=== PATIENT | male | born 1970 | race Caucasian/White ===

== ENCOUNTER → 2024-01-28 17:27 | Outpatient (CLI) | payer OTHER, SELFPAY ==
--- NOTE | 2024-01-28 17:30 | DI.MRI.S_ITS ---
PROCEDURE: MR SHOULDER LT WO CON INDICATIONS: IMPINGEMENT SYNDROME OF LEFT SHOULDER TECHNIQUE: Noncontrast oblique coronal T2 fast spin echo with fat saturation, oblique sagittal T1 spin echo and T2 fast spin echo with fat saturation, axial T1 spin echo and T2 fast spin echo with fat saturation through the shoulder. COMPARISON: [facility], MR, SHOULDER WITHOUT CONTRAST, 09/06/2015, 7:26. FINDINGS: Image quality: Excellent. Rotator cuff: Low-grade bursal surface partial-thickness tear involving distal supraspinatus at its insertion on the humeral head is seen extending to musculotendinous junction. Distal infraspinatus and subscapularis tendinosis is seen. No full-thickness rotator cuff tendon rupture. Sagittal images demonstrate no significant rotator cuff muscle atrophy. Bones and bursae: No bone marrow contusions or fractures. Mild to moderate acromioclavicular joint osteoarthritic changes are seen with joint space narrowing and downward osteophyte formation depressing the musculotendinous junction of supraspinatus. Type 1 acromion, without an os acromiale. Small amount of subacromial subdeltoid bursal fluid is seen, no loose bodies. Capsule and soft tissues: There is extensive signal abnormality and fraying of anterior inferior labrum suggestive of anterior-inferior left glenoid labral tear. The long head of the biceps tendon demonstrates normal location and morphology. The rotator interval appears normal, without fibrosis. The coracohumeral ligament is normal in thickness. IMPRESSION: 1. Low-grade bursal surface partial-thickness tear involving distal supraspinatus extending to musculotendinous junction. Distal infraspinatus and subscapularis tendinosis. No full-thickness rotator cuff tendon rupture. 2. Aymy-lu-qtvaoodm acromioclavicular joint osteoarthritis. No fracture or dislocation. Small amount of subacromial subdeltoid bursal fluid, no loose bodies. 3. Suggestion of extensive anterior-inferior left glenoid labral tear. Dictated by: Roosevelt Raza M.D. on 01/30/2024 at 22:26 Approved by: Roosevelt Raza M.D. on 01/30/2024 at 22:48
== END ==
PROVIDERS: PCP Family Medicine; Referring Provider Orthopaedic Surgery; Visit Provider Orthopaedic Surgery
DX: M75.112 Incomplete rotator cuff tear or rupture of left shoulder, not specified as traumatic (principal); M19.012 Primary osteoarthritis, left shoulder; M75.42 Impingement syndrome of left shoulder
CPT/HCPCS: 73221